=== PATIENT | male | born 1950 | race Caucasian/White ===

== ENCOUNTER 2020-09-07 19:51 | Inpatient (IN) | payer MEDICARE, OTHER ==
[~2020-09-07] VITALS: Ht 170.2 cm; Wt 91.3 kg
[2020-09-08 00:59] LABS: HEMOGLOBIN 7.5 gm/dl (14.0-17.5)
[2020-09-08] MEDS ORDERED: ASPIRIN CHEWABL81 MG PEG (01:48)
[2020-09-08] MEDS ORDERED: LAXATIVE5 M1 PEG (01:49)
[2020-09-08] MEDS ORDERED: BUMETANIDE1 MG PEG (01:49)
[2020-09-08] MEDS ORDERED: ESCITALOPRAM OX10 MG PEG (01:50)
[2020-09-08] MEDS ORDERED: FOLIC ACID1 MG PEG (01:50)
[2020-09-08] MEDS ORDERED: LEVEMIR100 UNIT/1 SQ (01:51)
[2020-09-08] MEDS ORDERED: CLARITIN 10MG T10 MG PEG (01:52)
[2020-09-08] MEDS ORDERED: NIFEDIPINE ER60 M1 PO (01:53)
[2020-09-08] MEDS ORDERED: OLANZAPINE5 MG PEG (01:53)
[2020-09-08] MEDS ORDERED: ONE-DAILY MULT1 EACH PEG (01:54)
[2020-09-08] MEDS ORDERED: POLYETHYLENE GL17 GM PEG (01:55)
[2020-09-08] MEDS ORDERED: SILODOSIN4 MG PEG (01:56)
[2020-09-08] MEDS ORDERED: SODIUM BICARBO650 MG PEG (01:57)
[2020-09-08] MEDS ORDERED: DERMACINRX5000 UNI1 PEG (01:57)
[2020-09-08] MEDS ORDERED: CARVEDILOL6.25 MG PEG (01:58)
[2020-09-08] MEDS ORDERED: VALPROIC A500 MG/10 PEG (01:59)
[2020-09-08] MEDS ORDERED: NOVOLOG 10100 UNITS/ INJ (01:59)
[2020-09-08] MEDS ORDERED: ACETAMINOP500 MG/15 PEG (02:00)
[2020-09-08] MEDS ORDERED: BISACODYL10 MG PR (02:01)
[2020-09-08] MEDS ORDERED: GLUCAGEN1 MG IM (02:02)
[2020-09-08] MEDS ORDERED: NITROGLYCERIN0.4 MG SL (02:03)
[2020-09-08] MEDS ORDERED: NEPRO CARB ST1000 ML PEG (02:04)
[2020-09-08 06:18] LABS: BUN/CREATININE RATIO 31 (0-10)
[2020-09-09 02:26] LABS: RED BLOOD COUNT 2.43 M/UL (4.20-5.50); WHITE BLOOD COUNT 11.5 K/UL (4.5-11.0)
--- NOTE | 2020-09-09 17:53 | NUR ---
APPROX 2PM TODAY PATIENT O2 SATURATION DROPPED. PULMONARY MEDICINE CONSULTED. RESPIRATORY THERAPY CALLED. PT DEEP SUCTION AND NONREBREATHER APPLIED. PT TOLERATING WELL AND O2 IS MAINTAINING ABOVE 90%. PULMONARY DR Araya WANTS PATIENT ABOVE 89%. WILL DO TESTS AND FOLLOW UP AFTER RESULTS RECEIVED
[2020-09-10 05:11] LABS: HEMOGLOBIN 8.9 gm/dl (14.0-17.5); WHITE BLOOD COUNT 12.6 K/UL (4.5-11.0)
[2020-09-10 05:15] LABS: RED BLOOD COUNT 3.13 M/UL (4.20-5.50)
--- NOTE | 2020-09-11 00:30 | NUR ---
Per the request of the patients Iman davis, the pulmonology progress note has been faxed and state [facility] notified per phone call.
[2020-09-11 04:20] LABS: HEMOGLOBIN 8.1 gm/dl (14.0-17.5); RED BLOOD COUNT 2.87 M/UL (4.20-5.50)
[2020-09-12 03:08] LABS: HEMOGLOBIN 7.8 gm/dl (14.0-17.5); RED BLOOD COUNT 2.71 M/UL (4.20-5.50); WHITE BLOOD COUNT 9.5 K/UL (4.5-11.0)
[2020-09-13 03:00] LABS: HEMOGLOBIN 8.5 gm/dl (14.0-17.5); WHITE BLOOD COUNT 10.6 K/UL (4.5-11.0)
[2020-09-13 03:06] LABS: RED BLOOD COUNT 2.99 M/UL (4.20-5.50)
[2020-09-14 05:31] LABS: HEMOGLOBIN 7.9 gm/dl (14.0-17.5); RED BLOOD COUNT 2.76 M/UL (4.20-5.50); WHITE BLOOD COUNT 9.8 K/UL (4.5-11.0)
[2020-09-15 03:38] LABS: HEMOGLOBIN 7.9 gm/dl (14.0-17.5); RED BLOOD COUNT 2.75 M/UL (4.20-5.50); WHITE BLOOD COUNT 10.1 K/UL (4.5-11.0)
[2020-09-17 03:11] LABS: HEMOGLOBIN 8.4 gm/dl (14.0-17.5); RED BLOOD COUNT 2.98 M/UL (4.20-5.50); WHITE BLOOD COUNT 11.9 K/UL (4.5-11.0)
[2020-09-17] MEDS ORDERED: AMLODIPINE BESYL5 MG GT (09:00)
[2020-09-17] MEDS ORDERED: CATAPRES 0.1MG0.1 MG PEG (09:00)
[2020-09-17] MEDS ORDERED: FERROUS SULFAT325 M2 PEG (09:00)
== END 2020-09-17 20:15 | DRG 871 ==
LOC: CCU 19:51 → PROG CARE 21:20 → CCU 21:20 → PROG CARE 22:06 → CCU 09-09 20:15 → MED SURG 4 09-13 18:29
PROVIDERS: Internal Medicine; Internal Medicine Nephrology; Internal Medicine Pulmonary Disease; ADMIT Internal Medicine
PROC: B24BZZ4 Ultrasonography of Heart with Aorta, Transesophageal (ICD-10-PCS; 2020-09-08)
PROC: 30233N1 Transfusion of Nonautologous Red Blood Cells into Peripheral Vein, Percutaneous Approach (ICD-10-PCS; principal; 2020-09-09)
PROC: 0BJ08ZZ Inspection of Tracheobronchial Tree, Via Natural or Artificial Opening Endoscopic (ICD-10-PCS; 2020-09-12)
DX: A41.9 Sepsis, unspecified organism (principal); J96.21 Acute and chronic respiratory failure with hypoxia; J69.0 Pneumonitis due to inhalation of food and vomit; J96.22 Acute and chronic respiratory failure with hypercapnia; G93.41 Metabolic encephalopathy; E43 Unspecified severe protein-calorie malnutrition; R53.2 Functional quadriplegia; N17.9 Acute kidney failure, unspecified; D62 Acute posthemorrhagic anemia; N18.4 Chronic kidney disease, stage 4 (severe); I13.0 Hypertensive heart and chronic kidney disease with heart failure and stage 1 through stage 4 chronic kidney disease, or unspecified chronic kidney disease; I50.32 Chronic diastolic (congestive) heart failure; J44.0 Chronic obstructive pulmonary disease with (acute) lower respiratory infection; Z68.1 Body mass index [BMI] 19.9 or less, adult; Z20.822 Contact with and (suspected) exposure to COVID-19; F41.9 Anxiety disorder, unspecified; E86.0 Dehydration; E11.22 Type 2 diabetes mellitus with diabetic chronic kidney disease; K21.9 Gastro-esophageal reflux disease without esophagitis; G40.909 Epilepsy, unspecified, not intractable, without status epilepticus; F25.9 Schizoaffective disorder, unspecified; R13.19 Other dysphagia; F79 Unspecified intellectual disabilities; J98.4 Other disorders of lung; F03.90 Unspecified dementia, unspecified severity, without behavioral disturbance, psychotic disturbance, mood disturbance, and anxiety; D50.9 Iron deficiency anemia, unspecified; D63.1 Anemia in chronic kidney disease; Z93.1 Gastrostomy status; Z93.0 Tracheostomy status; Z79.4 Long term (current) use of insulin; Z88.7 Allergy status to serum and vaccine; Z88.8 Allergy status to other drugs, medicaments and biological substances; Z74.01 Bed confinement status; Z79.82 Long term (current) use of aspirin
CPT/HCPCS: ECHO; 36415; 36430; 36600; 71045; 71250; 80048; 80053; 80307; 82140; 82272; 82550; 82553; 82570; 82607; 82728; 82746; 82803; 82805; 82962; 83036; 83540; 83550; 83605; 83735; 83935; 84100; 84156; 84300; 84439; 84443; 84484; 84550; 85014; 85018; 85025; 85045; 85379; 85610; 85730; 86140; 86850; 86900; 86901; 86920; 87040; 87070; 87081; 87205; 92610; 93005; 93306; 93970; 94640; 94660; 94664; 94760; C9113; J0330; J0692; J2020; J2543; J2704; J3010; J7030; J7040; P9016; U0002